=== PATIENT | male | born 1945 | race Hispanic/Latino ===

== ENCOUNTER → 2019-07-31 | Day surgery (SDC) | payer MEDICARE ==
[~2019-07-31] MED LIST: ACETAMINOPHEN/CODEINE 300MG - 30MG TAB ONE; B&O 60MG R/S 60 MG SUPP PR ONE; BUPIVACAINE 0.25% 30ML SDV INJ ONE; CEFAZOLIN SOD 1 GM/NS 50ML 100 ML IV ONE; DEXAMETHASONE SOD PHOS INJ 4 MG/ML VIAL ONE; FENTANYL CITRATE/PF 100MCG/2 ML INJ ONE; FLOMAX0.4 MG PO; GEMFIBROZIL600 MG PO; IMMUNE SUPPORT PO; IOPAMIDOL 300MG/ML 50ML INFUS..BTL IV ONE; LIDOCAINE HCL 2% LOCAL INJ 5 ML SDV VIAL INJ ONE; MIDAZOLAM HCL 2 MG/2 ML VIAL ONE; ONDANSETRON HCL INJ 2MG/ML 2ML 2 MG/ML VIAL ONE; PROPOFOL IV EMULSION 10 MG/ML 20 ML VIAL ONE; ROCURONIUM BROMIDE 10 MG/ML 5ML VIAL IV ONE; SEVOFLURANE INHAL SOLN 250 ML PEN BTL ONE
[2019-07-31 09:03] LABS: BASOPHILS % 0.3 % (0.0-1.0); EOSINOPHILS # (AUTO) 0.4 (0.0-0.4); EOSINOPHILS % 6.3 % (0.0-6.0); HEMATOCRIT 42.6 % (38.2-49.6); HEMOGLOBIN 14.9 g/dL (14.0-18.0); LYMPHOCYTES # (AUTO) 1.9 (1.0-3.2); LYMPHOCYTES % 32.7 % (18.0-39.1); MEAN CORPUSCULAR HEMOGLOBIN 32.9 pg (28-32); MONOCYTES # (AUTO) 0.7 (0.2-0.8); MONOCYTES % 11.6 % (4.4-11.3); NEUTROPHILS # (AUTO) 2.9 (2.1-6.9); NEUTROPHILS % 48.8 % (38.7-80.0); PLATELET COUNT 179 x10e3/uL (140-360); RED BLOOD COUNT 4.53 x10e6/uL (4.3-5.7); RED CELL DISTRIBUTION WIDTH 13.4 % (11.7-14.4)
[2019-07-31 09:25] LABS: ALANINE AMINOTRANSFERASE 32 IU/L (0-55); ALBUMIN 3.8 g/dL (3.5-5.0); ALBUMIN/GLOBULIN RATIO 1.1 (0.8-2.0); ALKALINE PHOSPHATASE 84 IU/L (40-150); ANION GAP 10.9 mmol/L (8-16); BLOOD UREA NITROGEN 17 mg/dL (7-26); BUN/CREATININE RATIO 18 (6-25); CALCIUM 9.1 mg/dL (8.4-10.2); CARBON DIOXIDE 23 mmol/L (22-29); CHLORIDE 108 mmol/L (98-107); CREATININE, SERUM 0.94 mg/dL (0.72-1.25); EST GLOMERULAR FILTRATION RATE > 60 ML/MIN (60-); GLUCOSE 139 mg/dL (74-118); POTASSIUM 3.9 mmol/L (3.5-5.1); SODIUM 138 mmol/L (136-145)
[2019-07-31 12:20] VITALS: BP 150/84
--- NOTE | 2019-08-03 20:20 | Operative Report ---
DATE OF PROCEDURE: 07/31/2019 SURGEON: Erwin Tracey MD PREOPERATIVE DIAGNOSES: 1. Right testicular mas. 2. Microscopic hematuria. 3. Urolithiasis. POSTOPERATIVE DIAGNOSES: 1. Right testicular mas. 2. Microscopic hematuria. 3. Urolithiasis. 4. 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 OPERATION PERFORMED: 1. Right radical (inguinal) orchiectomy (separate procedure performed for the right testis oscar). 2. Regional nerve block (separate procedure performed for postop pain control and not required for the actual performance of surgery which was done under general anesthesia). 3. Cystourethroscopy with calibration and dilation of the urethral stricture disease (separate procedure performed for the stricture). 4. Cystourethroscopy with bilateral ureteral catheterization and retrograde ureteropyelography (separate procedure performed for microhematuria and the urolithiasis). 5. Interpretation of retrograde ureteropyelography, no radiologist present. 6. Supervision of fluoroscopy, no radiologist present. ANESTHESIA: General. COMPLICATIONS: None. CLINICAL SUMMARY: Trenton Ramos is a 74-year-old man with right testicular mass on ultrasonography, it was suspicious. Tumor markers were within normal limits. CT scanning revealed no evidence of metastasis. It did, however, reveal bilateral kidney stones, more prominent on the right. The patient was brought for the above procedures. He understands the risks of bleeding, infection, injury to adjacent structures, incomplete cancer resection, need for additional cancer therapies, and the usual attendant risks of surgery and anesthesia were reviewed, encouraged to discuss with an anesthesiologist preoperatively. We are performing this case during the COVID-19 emergency due to the fact that the patient could have potential cancer and delaying a testicular cancer for a month or two allow for irreparable growth and potential for incurable metastatic disease. OPERATIVE PROCEDURE IN DETAIL: Informed consent was verified. Trenton Ramos was properly identified, taken to the operating room, and placed on the operating table in supine position. Anesthesia was uneventfully begun. The patient was then carefully and gently repositioned in the dorsal lithotomy position with all pressure points well padded. His abdomen and genitalia were shaved, prepared, and draped in usual sterile fashion. A low right inguinal incision was made, carried through all layers of the skin and copious subcutaneous tissues until we reached the spermatic cord. The spermatic cord was isolated, it was divided into bundles. The two bundles were each tied with a #1 Ethibond suture ligature as well as a #1 Ethibond freehand tie. We then dissected the testis free from its scrotal attachments. We delivered it through the incision and sent it for histopathological analysis. Pinpoint electrocautery was utilized to achieve hemostasis. Marcaine without epinephrine was utilized to infiltrate the spermatic cord proximal to the region of dissection. This regional block was done for postoperative pain control and has not required for the actual performance of surgery, which was done under general anesthesia. Copious irrigation was performed. We verified hemostasis. The patient's incision was then approximated in layers utilizing Vicryl for the subcutaneous tissue approximation and the skin was approximated with 3-0 Chromic suture in running fashion. A 22.5-Scottish cystoscope sheath with the visual obturator in place was atraumatically inserted into the patient's urethra, the meatus was unremarkable. The fossa navicularis exhibited some stricturing. This was gently dilated with the visual obturator, thus calibrating it and dilating it to 22.5-Scottish size. We proceeded down the otherwise unremarkable urethra until we reached the bulbar region where there was another stricture. This stricture was short. We gently dilated across the stricture, thus calibrating it and dilating it to 22.5-Scottish size. Sphincteric region was normal. The prostatic urethra was significant for visually obstructing BPH. We entered the patient's bladder and drained it. Panendoscopy revealed no suspicious growths or lesions, no tumors, no stones, no diverticula. Grade 1 trabeculation was noted. An 8-Scottish catheter was used to cannulate each ureter and retrograde ureteropyelogram was performed. Interpretation of retrograde ureteropyelography contrast was instilled in retrograde fashion bilaterally. The patient's kidney stone could be seen as filling defect upon retrograde injection of contrast. A large stone appeared to be on the right hand side. There was no hydronephrosis. Unobstructed drainage was observed bilaterally fluoroscopically. The patient's bladder was drained and cystoscope was withdrawn. Belladonna and opium suppository were placed revealing a large 40 g prostate, smooth and nonfunctional without any nodules. The patient was then uneventfully reversed from anesthesia and taken to recovery room in stable condition. There were no complications to the procedure. The patient tolerated the procedure well. Sponge, needle, and instrument counts were grossly correct x2 at the end of the case. Estimated blood loss was minimal. Explicit postop instructions were given. We will eagerly await the patient's histopathological report and in the meantime, we will plan on returning the patient to the operating room at another occasion for a right versus left ESWL. Erwin MD Kyung [place]/MODL /[id number] cc: Jomar Wong
== END | disposition home or self-care (01) ==
LOC: OR 07:55
PROVIDERS: ATTEND Urology
DX: C85.10 Unspecified B-cell lymphoma, unspecified site (principal); N35.912 Unspecified bulbous urethral stricture, male; N20.0 Calculus of kidney; N40.1 Benign prostatic hyperplasia with lower urinary tract symptoms; N13.8 Other obstructive and reflux uropathy; N32.89 Other specified disorders of bladder; N19 Unspecified kidney failure; G47.33 Obstructive sleep apnea (adult) (pediatric); E66.9 Obesity, unspecified; R00.1 Bradycardia, unspecified
CPT/HCPCS: 36415; 74420; 80053; 83970; 84550; 85025; 88309; 93005; C1758; J0690; J1100; J2001; J2250; J2405; J3010